=== PATIENT | female | born 1965 | race Caucasian/White ===

== ENCOUNTER 2018-03-04 21:38 | Inpatient (IN) | payer MEDICARE, MEDICAID ==
[~2018-03-04] VITALS: Ht 157.5 cm; Wt 81.8 kg
[~2018-03-04 21:38] MED LIST: DIVA500T4 PO; GABA-531 PO; LEVE1000 PO; LEVO100T PO; LOP600 PO; MELO15TA13 PO; OMEP40CA33 PO; OXYC-130 PO; TEMA15CA5 PO; TIZA4TAB11 PO; VENL75CA PO
[2018-03-04 21:49] VITALS: BP_SYST 117
[2018-03-04] MEDS ORDERED: KETOROLAC TROMETHAMINE 60 MG/2 ML VIAL IM ONE (22:15)
[2018-03-04] MEDS ORDERED: MORPHINE 2 MG/ML INJ. SYRINGE IVP ONE (23:15)
[2018-03-04] MEDS ORDERED: NACL 0.9% 1,000 ML IV ONE (23:15)
[2018-03-04] MEDS ORDERED: MIDAZOLAM HCL 5 MG/5 ML VIAL IVP ONE (23:15)
[2018-03-05 00:02] LABS: BASOPHILS % (AUTO) 0.7 % (0.0-2.0); EOSINOPHILS # (AUTO) 0.1 K/uL (0.0-0.4); HEMOGLOBIN 9.3 g/dL (12.0-16.0); LYMPHOCYTES # (AUTO) 1.7 K/uL (1.0-5.5); LYMPHOCYTES % (AUTO) 26.3 % (20.5-51.5); MEAN CORPUSCULAR HEMOGLOBIN 26 pg (27-31); MEAN CORPUSCULAR HGB CONC 31 % (32-36); MEAN CORPUSCULAR VOLUME 85 fL (79.0-98.0); MONOCYTES # (AUTO) 0.5 K/uL (0.0-1.0); MONOCYTES % (AUTO) 8.1 % (1.7-9.3); NEUTROPHILS # (AUTO) 4.3 K/uL (1.8-7.7); NEUTROPHILS % (AUTO) 62.9 % (40.0-70.0); PLATELET COUNT (AUTO) 167 K/uL (130-430); RED BLOOD CELL COUNT(AUTO) 3.51 MIL/uL (4.2-6.2); WHITE BLOOD COUNT (AUTO) 6.6 K/uL (4.8-10.8)
[2018-03-05] MEDS ORDERED: OXCA150T5 PO (00:10)
[2018-03-05] MEDS ORDERED: TOPI200T PO (00:10)
[2018-03-05 00:12] LABS: CALCIUM 8.3 mg/dL (8.4-11.0); CREATININE 0.76 mg/dL (0.55-1.30); POTASSIUM 3.4 mmol/L (3.5-5.1)
[2018-03-05 00:17] LABS: PROTHROMBIN TIME 9.8 SECS (9.5-12.5)
[2018-03-05 00:18] LABS: ALBUMIN 3.5 g/dL (3.4-4.8); TOTAL BILIRUBIN 0.2 mg/dL (0.0-1.0)
[2018-03-05 01:20] VITALS: BP_SYST 117
[2018-03-05] MEDS: HYDROmorphone 2 MG/ML VIAL IVP PRN ×5 (03:27→22:20)
[2018-03-05] MEDS: ENOXAPARIN SODIUM 40 MG/0.4 ML SYRINGE SUBCUT SCH (08:17)
[2018-03-05 08:23] VITALS: BP_SYST 117
[2018-03-05 11:32] LABS: BILIRUBIN,URINE NEGATIVE (NEGATIVE); BLOOD, URINE NEGATIVE (NEGATIVE); CLARITY/URINE CLEAR (CLEAR); COLOR,URINE YELLOW (YELLOW); GLUCOSE,URINE NEGATIVE (NEGATIVE); KETONES,URINE NEGATIVE (NEGATIVE); LEUKOCYTE ESTERASE ,URINE NEGATIVE (NEGATIVE); NITRITE, URINE NEGATIVE (NEGATIVE); PROTEIN URINE NEGATIVE (NEGATIVE); UROBILINOGEN,URINE 0.2 (0.2-1.0)
[2018-03-05 12:08] VITALS: BP_SYST 125
[2018-03-05] MEDS ORDERED: BISACODYL 5 MG TABLET.DR (DULCOLAX) PO PRN (13:45)
[2018-03-05] MEDS ORDERED: levETIRAcetam 500 MG TABLET PO ONE (13:45)
[2018-03-05] MEDS ORDERED: DIVALPROEX SODIUM 500 MG TAB.SR.24H (DEPAKOTE ER) PO ONE (13:45)
[2018-03-05] MEDS ORDERED: POTASSIUM CHLORIDE 20 MEQ TAB.PRT.SR PO ONE (13:45)
[2018-03-05] MEDS ORDERED: LEVOTHYROXINE SODIUM 0.1 MG TABLET PO ONE (13:45)
[2018-03-05 16:47] VITALS: BP_SYST 117
[2018-03-05 20:00] VITALS: BP_SYST 111
[2018-03-05] MEDS: DOCUSATE SODIUM 100 MG CAPSULE PO SCH (20:15)
[2018-03-05] MEDS: OXcarbazepine 150 MG TABLET(TRILEPTAL) PO SCH (20:16)
[2018-03-05] MEDS: levETIRAcetam 500 MG TABLET PO SCH (20:16)
[2018-03-05] MEDS: DIVALPROEX SODIUM 500 MG TAB.SR.24H (DEPAKOTE ER) PO SCH (20:16)
[2018-03-05] MEDS: TOPIRAMATE 100 MG TABLET(Topamax) PO SCH (20:17)
[2018-03-05 23:40] VITALS: BP_SYST 100
[2018-03-06] MEDS: HYDROmorphone 2 MG/ML VIAL IVP PRN ×5 (04:54→22:55)
[2018-03-06] MEDS: LEVOTHYROXINE SODIUM 0.1 MG TABLET PO SCH (06:00)
[2018-03-06] MEDS: DOCUSATE SODIUM 100 MG CAPSULE PO SCH ×2 (08:59→21:00)
[2018-03-06] MEDS: DIVALPROEX SODIUM 500 MG TAB.SR.24H (DEPAKOTE ER) PO SCH ×2 (09:00→20:24)
[2018-03-06] MEDS: ENOXAPARIN SODIUM 40 MG/0.4 ML SYRINGE SUBCUT SCH (09:00)
[2018-03-06] MEDS: levETIRAcetam 500 MG TABLET PO SCH ×2 (09:00→20:24)
[2018-03-06 09:33] VITALS: BP_SYST 107
[2018-03-06 11:34] VITALS: BP_SYST 106
[2018-03-06] MEDS: ACETAMINOPHEN 325 MG TABLET PO PRN (14:04)
[2018-03-06 16:00] VITALS: BP_SYST 109
[2018-03-06 20:00] VITALS: BP_SYST 105
[2018-03-06] MEDS: TOPIRAMATE 100 MG TABLET(Topamax) PO SCH (20:24)
[2018-03-06] MEDS: OXcarbazepine 150 MG TABLET(TRILEPTAL) PO SCH (20:24)
[2018-03-07] VITALS: BP_SYST 103
[2018-03-07] MEDS: HYDROmorphone 2 MG/ML VIAL IVP PRN ×2 (05:24→11:43)
[2018-03-07] MEDS: LEVOTHYROXINE SODIUM 0.1 MG TABLET PO SCH (06:15)
[2018-03-07 07:00] LABS: PROTHROMBIN TIME 9.7 SECS (9.5-12.5)
[2018-03-07 07:09] LABS: BASOPHILS # (AUTO) 0.1 K/uL (0.0-0.2); EOSINOPHILS # (AUTO) 0.2 K/uL (0.0-0.4); EOSINOPHILS % (AUTO) 2.8 % (0.0-4.0); HEMATOCRIT 24.2 % (36-48); HEMOGLOBIN 7.5 g/dL (12.0-16.0); LYMPHOCYTES # (AUTO) 1.6 K/uL (1.0-5.5); LYMPHOCYTES % (AUTO) 27.8 % (20.5-51.5); MEAN CORPUSCULAR HEMOGLOBIN 26 pg (27-31); MEAN CORPUSCULAR HGB CONC 31 % (32-36); MEAN CORPUSCULAR VOLUME 85 fL (79.0-98.0); MONOCYTES # (AUTO) 0.7 K/uL (0.0-1.0); MONOCYTES % (AUTO) 12.6 % (1.7-9.3); NEUTROPHILS % (AUTO) 55.8 % (40.0-70.0); PLATELET COUNT (AUTO) 141 K/uL (130-430); RED BLOOD CELL COUNT(AUTO) 2.87 MIL/uL (4.2-6.2); RED CELL DISTRIBUTION WIDTH 16.8 % (9.0-15.0); WHITE BLOOD COUNT (AUTO) 5.6 K/uL (4.8-10.8)
[2018-03-07 07:13] LABS: CALCIUM 8.5 mg/dL (8.4-11.0); CREATININE 0.56 mg/dL (0.55-1.30); POTASSIUM 3.7 mmol/L (3.5-5.1)
[2018-03-07 08:40] VITALS: BP_SYST 102
[2018-03-07] MEDS: ENOXAPARIN SODIUM 40 MG/0.4 ML SYRINGE SUBCUT SCH (09:00)
[2018-03-07] MEDS: DIVALPROEX SODIUM 500 MG TAB.SR.24H (DEPAKOTE ER) PO SCH ×2 (09:00→21:00)
[2018-03-07] MEDS: levETIRAcetam 500 MG TABLET PO SCH ×2 (09:00→21:00)
[2018-03-07] MEDS: DOCUSATE SODIUM 100 MG CAPSULE PO SCH ×2 (09:21→21:00)
[2018-03-07] MEDS: ACETAMINOPHEN 325 MG TABLET PO PRN (09:23)
[2018-03-07 12:35] VITALS: BP_SYST 101
[2018-03-07 16:24] VITALS: BP_SYST 110
[2018-03-07] MEDS ORDERED: fentaNYL CITRATE/PF 100 MCG/2 ML AMP IVP PRN ×2 (20:00)
[2018-03-07] MEDS ORDERED: ONDANSETRON HCL 4 MG/2 ML VIAL IVP PRN (20:00)
[2018-03-07] MEDS ORDERED: KETOROLAC TROMETHAMINE 30 MG VIAL IVP PRN (20:00)
[2018-03-07] MEDS ORDERED: POLYMYXIN 500,000/BACIT.10,000 UNITS in NS IRR 1 L IR ONE (20:04)
[2018-03-07 20:59] VITALS: BP_SYST 110
[2018-03-07] MEDS: OXcarbazepine 150 MG TABLET(TRILEPTAL) PO SCH (21:00)
[2018-03-07] MEDS: TOPIRAMATE 100 MG TABLET(Topamax) PO SCH (21:00)
[2018-03-07] MEDS ORDERED: ONDANSETRON 4 MG ODT TAB PO PRN (23:15)
[2018-03-08 01:32] VITALS: BP_SYST 115
[2018-03-08] MEDS: HYDROcodone/ACETAMIN 5-325 MG TAB (NORCO/ VICODIN) PO PRN ×2 (02:06→15:02)
[2018-03-08] MEDS: HYDROmorphone 2 MG/ML VIAL IVP PRN ×4 (04:45→18:23)
[2018-03-08] MEDS ORDERED: CEFAZOLIN 1 GM IVPB PREMIX 50 ML IV ONE (05:56)
[2018-03-08] MEDS: LEVOTHYROXINE SODIUM 0.1 MG TABLET PO SCH (06:14)
[2018-03-08] MEDS: CEFAZOLIN 1 GM IVPB PREMIX 50 ML IV SCH ×2 (06:15→13:11)
[2018-03-08 07:26] LABS: BASOPHILS % (AUTO) 0.4 % (0.0-2.0); EOSINOPHILS # (AUTO) 0.1 K/uL (0.0-0.4); HEMATOCRIT 31.6 % (36-48); HEMOGLOBIN 9.8 g/dL (12.0-16.0); LYMPHOCYTES % (AUTO) 10.6 % (20.5-51.5); MEAN CORPUSCULAR HEMOGLOBIN 27 pg (27-31); MEAN CORPUSCULAR HGB CONC 31 % (32-36); MEAN CORPUSCULAR VOLUME 88 fL (79.0-98.0); MONOCYTES # (AUTO) 1.1 K/uL (0.0-1.0); MONOCYTES % (AUTO) 11.3 % (1.7-9.3); NEUTROPHILS # (AUTO) 7.6 K/uL (1.8-7.7); NEUTROPHILS % (AUTO) 76.7 % (40.0-70.0); PLATELET COUNT (AUTO) 197 K/uL (130-430); RED BLOOD CELL COUNT(AUTO) 3.62 MIL/uL (4.2-6.2); RED CELL DISTRIBUTION WIDTH 16.2 % (9.0-15.0); WHITE BLOOD COUNT (AUTO) 9.8 K/uL (4.8-10.8)
[2018-03-08] MEDS: DIVALPROEX SODIUM 500 MG TAB.SR.24H (DEPAKOTE ER) PO SCH ×2 (08:40→20:02)
[2018-03-08] MEDS: levETIRAcetam 500 MG TABLET PO SCH ×2 (08:40→20:01)
[2018-03-08] MEDS: DOCUSATE SODIUM 100 MG CAPSULE PO SCH ×2 (08:40→20:02)
[2018-03-08] MEDS: ENOXAPARIN SODIUM 40 MG/0.4 ML SYRINGE SUBCUT SCH (08:42)
[2018-03-08 08:50] VITALS: BP_SYST 146
[2018-03-08 12:57] VITALS: BP_SYST 146
[2018-03-08 16:48] VITALS: BP_SYST 131
[2018-03-08] MEDS ORDERED: PROPOFOL 200MG/ 20ML VIAL (DIPRIVAN) IV ONE (19:05)
[2018-03-08] MEDS ORDERED: WATER FOR IRRIGATION,STERILE 1,000 ML IRRIG.SOLN IR ONE (19:05)
[2018-03-08] MEDS ORDERED: fentaNYL CITRATE/PF 100 MCG/2 ML AMP IVP ONE (19:05)
[2018-03-08] MEDS ORDERED: CEFAZOLIN 2 GM IVPB PREMIX 50 ML IV ONE (19:05)
[2018-03-08] MEDS ORDERED: ROPIVACAINE 0.2% (NAROPIN) PF SOLUTION 100 ML BOTTLE EP ONE (19:05)
[2018-03-08] MEDS ORDERED: MIDAZOLAM HCL 5 MG/5 ML VIAL IVP ONE (19:05)
[2018-03-08] MEDS ORDERED: LR 1,000 ML IV.SOLN IV ONE (19:05)
[2018-03-08] MEDS ORDERED: SEVOFLURANE 15 MIN GAS INH ONE (19:05)
[2018-03-08 20:00] VITALS: BP_SYST 138
[2018-03-08] MEDS: TOPIRAMATE 100 MG TABLET(Topamax) PO SCH (20:01)
[2018-03-08] MEDS: OXcarbazepine 150 MG TABLET(TRILEPTAL) PO SCH (20:02)
[2018-03-08 23:24] VITALS: BP_SYST 136
[2018-03-09] MEDS: HYDROmorphone 2 MG/ML VIAL IVP PRN ×4 (00:20→18:53)
[2018-03-09] MEDS: LEVOTHYROXINE SODIUM 0.1 MG TABLET PO SCH (06:34)
[2018-03-09] MEDS: ENOXAPARIN SODIUM 40 MG/0.4 ML SYRINGE SUBCUT SCH (08:55)
[2018-03-09] MEDS: DOCUSATE SODIUM 100 MG CAPSULE PO SCH ×2 (08:55→21:00)
[2018-03-09] MEDS: levETIRAcetam 500 MG TABLET PO SCH ×2 (08:57→21:34)
[2018-03-09] MEDS: DIVALPROEX SODIUM 500 MG TAB.SR.24H (DEPAKOTE ER) PO SCH ×2 (08:57→21:34)
[2018-03-09 09:04] VITALS: BP_SYST 129
[2018-03-09 12:36] VITALS: BP_SYST 117
[2018-03-09] MEDS: HYDROcodone/ACETAMIN 5-325 MG TAB (NORCO/ VICODIN) PO PRN (13:26)
[2018-03-09 16:48] VITALS: BP_SYST 127
[2018-03-09] MEDS: ACETAMINOPHEN 325 MG TABLET PO PRN (18:58)
[2018-03-09 20:45] VITALS: BP_SYST 116
[2018-03-09] MEDS: OXcarbazepine 150 MG TABLET(TRILEPTAL) PO SCH (21:34)
[2018-03-09] MEDS: TOPIRAMATE 100 MG TABLET(Topamax) PO SCH (21:34)
== END 2018-03-09 22:14 | DRG 493 ==
LOC: SED 21:38 → SMU 03-05 00:40
PROVIDERS: ADMIT Family Medicine; ATTEND Family Medicine
PROC: 2W3FX1Z Immobilization of Left Hand using Splint (ICD-10-PCS; 2018-03-05)
PROC: 30233N1 Transfusion of Nonautologous Red Blood Cells into Peripheral Vein, Percutaneous Approach (ICD-10-PCS; principal; 2018-03-07 17:30)
PROC: 0QSG04Z Reposition Right Tibia with Internal Fixation Device, Open Approach (ICD-10-PCS; 2018-03-08)
PROC: 0PSH04Z Reposition Right Radius with Internal Fixation Device, Open Approach (ICD-10-PCS; 2018-03-08)
PROC: 0PSG04Z Reposition Left Humeral Shaft with Internal Fixation Device, Open Approach (ICD-10-PCS; 2018-03-08)
DX: S52.122A Displaced fracture of head of left radius, initial encounter for closed fracture (principal); S42.452A Displaced fracture of lateral condyle of left humerus, initial encounter for closed fracture; S82.141A Displaced bicondylar fracture of right tibia, initial encounter for closed fracture; S83.249A Other tear of medial meniscus, current injury, unspecified knee, initial encounter; D64.9 Anemia, unspecified; E03.9 Hypothyroidism, unspecified; E86.0 Dehydration; E87.6 Hypokalemia; G40.909 Epilepsy, unspecified, not intractable, without status epilepticus; F32.9 Major depressive disorder, single episode, unspecified; W11.XXXA Fall on and from ladder, initial encounter; Y93.89 Activity, other specified; Y92.098 Other place in other non-institutional residence as the place of occurrence of the external cause; Y99.8 Other external cause status; Z91.041 Radiographic dye allergy status; Z91.09 Other allergy status, other than to drugs and biological substances; Z79.899 Other long term (current) drug therapy
CPT/HCPCS: 36415; 71045; 73200-TC; 73700-TC; 76000; 80048; 80053; 81003; 84702-TC; 85025; 85610-TC; 85730-TC; 86886; 86900; 86901; 86920; 87081; 90656; 93005; 94010; 96372; 96374; 97110-GP; 97530-GP; 99285; J0690; J1170; J1650; J1885; J2250; J2270; J2704; J2795; J3010; J7050; J7120; P9021

== ENCOUNTER 2019-04-24 16:21 | Inpatient (IN) | payer OTHER, MEDICAID ==
[~2019-04-24] VITALS: Ht 157.5 cm; Wt 76.2 kg
[~2019-04-24 16:21] MED LIST changes: -GABA-531 PO; -LOP600 PO; -MELO15TA13 PO; -OMEP40CA33 PO; +OXCA150T5 PO; -OXYC-130 PO; -TEMA15CA5 PO; -TIZA4TAB11 PO; +TOPI200T PO; -VENL75CA PO
[2019-04-24 17:56] VITALS: BP_SYST 140
[2019-04-24] MEDS ORDERED: MORPHINE 4 MG/ML INJ. SYRINGE IVP ONE (18:15)
[2019-04-24] MEDS ORDERED: VANCOMYCIN HCL 1,000 MG in NS 250 ML IV ONE (18:15)
[2019-04-24] MEDS ORDERED: DIPHENHYDRAMINE INJ 50 MG/ML VIAL IVP ONE (18:15)
[2019-04-24 18:49] LABS: BASOPHILS % (AUTO) 0.3 % (0.0-2.0); EOSINOPHILS # (AUTO) 0.1 K/uL (0.0-0.4); EOSINOPHILS % (AUTO) 0.4 % (0.0-4.0); HEMATOCRIT 34.4 % (36-48); HEMOGLOBIN 11.1 g/dL (12.0-16.0); LYMPHOCYTES # (AUTO) 2.3 K/uL (1.0-5.5); LYMPHOCYTES % (AUTO) 16.1 % (20.5-51.5); MEAN CORPUSCULAR HEMOGLOBIN 29 pg (27-31); MEAN CORPUSCULAR HGB CONC 32 % (32-36); MEAN CORPUSCULAR VOLUME 90 fL (79.0-98.0); MONOCYTES # (AUTO) 1.4 K/uL (0.0-1.0); MONOCYTES % (AUTO) 9.8 % (1.7-9.3); NEUTROPHILS # (AUTO) 10.3 K/uL (1.8-7.7); NEUTROPHILS % (AUTO) 73.4 % (40.0-70.0); PLATELET COUNT (AUTO) 308 K/uL (130-430); RED BLOOD CELL COUNT(AUTO) 3.83 MIL/uL (4.2-6.2); RED CELL DISTRIBUTION WIDTH 14.8 % (9.0-15.0)
[2019-04-24 18:50] LABS: CALCIUM 9.2 mg/dL (8.4-11.0); CREATININE 0.79 mg/dL (0.55-1.30); POTASSIUM 3.2 mmol/L (3.5-5.1)
[2019-04-24] MEDS ORDERED: VANCOMYCIN HCL 1000 MG/VIAL IV ONE (19:26)
[2019-04-24] MEDS ORDERED: POTASSIUM CHLORIDE 20 MEQ TAB.PRT.SR PO ONE (19:30)
[2019-04-24] MEDS ORDERED: fentaNYL CITRATE/PF 100 MCG/2 ML AMP IVP ONE (19:45)
[2019-04-24] MEDS ORDERED: ETOD200C4 PO (20:18)
[2019-04-24] MEDS ORDERED: PERC10 PO (20:18)
[2019-04-24] MEDS ORDERED: METH750T3 PO (20:18)
[2019-04-24] MEDS ORDERED: VENL75CA PO (20:20)
[2019-04-24 22:10] VITALS: BP_SYST 129
[2019-04-24] MEDS ORDERED: INSULIN REGULAR, HUMAN 100 UNITS/ML, 10 ML VIAL (humuLIN R) SUBCUT PRN (23:00)
[2019-04-25] MEDS ORDERED: AMPICILLIN SODIUM/SULBACTAM NA 3 GM VIAL ONE ×2 (00:51→05:42)
[2019-04-25] MEDS: AMPICILLIN SODIUM/SULBACTAM NA 3 GM in NS 100 ML IV SCH ×4 (01:05→18:12)
[2019-04-25] MEDS: OXcarbazepine 150 MG TABLET(TRILEPTAL) PO SCH ×2 (01:27→23:51)
[2019-04-25] MEDS: TOPIRAMATE 100 MG TABLET(Topamax) PO SCH ×2 (01:27→23:51)
[2019-04-25] MEDS: levETIRAcetam 500 MG TABLET PO SCH ×2 (01:27→12:24)
[2019-04-25] MEDS: HYDROmorphone 1 MG INJ. 1 MG/ML AMPUL IVP PRN ×3 (01:36→16:52)
[2019-04-25] MEDS: LEVOTHYROXINE SODIUM 0.1 MG TABLET PO SCH (06:33)
[2019-04-25 07:36] LABS: BASOPHILS # (AUTO) 0.1 K/uL (0.0-0.2); BASOPHILS % (AUTO) 0.4 % (0.0-2.0); EOSINOPHILS % (AUTO) 0.3 % (0.0-4.0); HEMATOCRIT 30.7 % (36-48); HEMOGLOBIN 10.2 g/dL (12.0-16.0); LYMPHOCYTES # (AUTO) 2.8 K/uL (1.0-5.5); LYMPHOCYTES % (AUTO) 19.2 % (20.5-51.5); MEAN CORPUSCULAR HEMOGLOBIN 30 pg (27-31); MEAN CORPUSCULAR HGB CONC 33 % (32-36); MEAN CORPUSCULAR VOLUME 89 fL (79.0-98.0); MONOCYTES # (AUTO) 1.8 K/uL (0.0-1.0); MONOCYTES % (AUTO) 12.5 % (1.7-9.3); NEUTROPHILS # (AUTO) 9.7 K/uL (1.8-7.7); NEUTROPHILS % (AUTO) 67.6 % (40.0-70.0); PLATELET COUNT (AUTO) 248 K/uL (130-430); RED BLOOD CELL COUNT(AUTO) 3.44 MIL/uL (4.2-6.2); RED CELL DISTRIBUTION WIDTH 15.1 % (9.0-15.0); WHITE BLOOD COUNT (AUTO) 14.3 K/uL (4.8-10.8)
[2019-04-25 07:44] LABS: CALCIUM 8.5 mg/dL (8.4-11.0); CREATININE 0.63 mg/dL (0.55-1.30); POTASSIUM 3.1 mmol/L (3.5-5.1)
[2019-04-25 08:00] VITALS: BP_SYST 104
[2019-04-25] MEDS: ETODOLAC 200 MG PO SCH ×2 (09:00→21:00)
[2019-04-25] MEDS: METHOCARBAMOL 500 MG TABLET PO SCH ×2 (09:42→23:51)
[2019-04-25] MEDS: Effexor 37.5 MG TAB PO SCH ×2 (09:43→23:51)
[2019-04-25] MEDS: VANCOMYCIN HCL 750 MG in NS 250 ML IV SCH (12:06)
[2019-04-25 12:29] VITALS: BP_SYST 136
[2019-04-25 12:31] VITALS: BP_SYST 113
[2019-04-25] MEDS ORDERED: POTASSIUM CHLORIDE 20 MEQ TAB.PRT.SR PO ONE (13:45)
[2019-04-25] MEDS ORDERED: DIVALPROEX SODIUM 500 MG TABLET( DEPAKOTE) PO ONE (14:45)
[2019-04-25 16:00] VITALS: BP_SYST 123
[2019-04-25] MEDS: MICAFUNGIN SODIUM 100 MG in NS 100 ML IV SCH (18:13)
[2019-04-25 22:30] VITALS: BP_SYST 115
[2019-04-25] MEDS: DIVALPROEX SODIUM 500 MG TABLET( DEPAKOTE) PO SCH (23:50)
[2019-04-25] MEDS: ENOXAPARIN SODIUM 40 MG/0.4 ML SYRINGE SUBCUT SCH (23:56)
[2019-04-26] MEDS: VANCOMYCIN HCL 750 MG in NS 250 ML IV SCH ×2 (00:01→11:26)
[2019-04-26] MEDS: HYDROmorphone 1 MG INJ. 1 MG/ML AMPUL IVP PRN ×2 (00:10→08:43)
[2019-04-26] MEDS: LEVOTHYROXINE SODIUM 0.1 MG TABLET PO SCH (06:06)
[2019-04-26] MEDS: AMPICILLIN SODIUM/SULBACTAM NA 3 GM in NS 100 ML IV SCH ×5 (06:06→17:09)
[2019-04-26 07:17] LABS: BASOPHILS % (AUTO) 0.3 % (0.0-2.0); EOSINOPHILS # (AUTO) 0.2 K/uL (0.0-0.4); EOSINOPHILS % (AUTO) 1.5 % (0.0-4.0); HEMOGLOBIN 9.7 g/dL (12.0-16.0); LYMPHOCYTES # (AUTO) 1.9 K/uL (1.0-5.5); LYMPHOCYTES % (AUTO) 17.6 % (20.5-51.5); MEAN CORPUSCULAR HEMOGLOBIN 29 pg (27-31); MEAN CORPUSCULAR HGB CONC 32 % (32-36); MEAN CORPUSCULAR VOLUME 89 fL (79.0-98.0); MONOCYTES # (AUTO) 1.1 K/uL (0.0-1.0); MONOCYTES % (AUTO) 9.9 % (1.7-9.3); NEUTROPHILS # (AUTO) 7.8 K/uL (1.8-7.7); NEUTROPHILS % (AUTO) 70.7 % (40.0-70.0); PLATELET COUNT (AUTO) 228 K/uL (130-430); RED BLOOD CELL COUNT(AUTO) 3.37 MIL/uL (4.2-6.2); RED CELL DISTRIBUTION WIDTH 14.9 % (9.0-15.0); WHITE BLOOD COUNT (AUTO) 11.1 K/uL (4.8-10.8)
[2019-04-26 07:30] LABS: CALCIUM 8.4 mg/dL (8.4-11.0); CREATININE 0.48 mg/dL (0.55-1.30); POTASSIUM 3.6 mmol/L (3.5-5.1)
[2019-04-26] MEDS: Effexor 37.5 MG TAB PO SCH ×2 (08:35→21:36)
[2019-04-26] MEDS: METHOCARBAMOL 500 MG TABLET PO SCH ×2 (08:35→21:35)
[2019-04-26] MEDS: levETIRAcetam 500 MG TABLET PO SCH (08:36)
[2019-04-26] MEDS: DIVALPROEX SODIUM 500 MG TABLET( DEPAKOTE) PO SCH ×2 (08:36→21:37)
[2019-04-26 08:43] VITALS: BP_SYST 111
[2019-04-26] MEDS: ETODOLAC 200 MG PO SCH ×2 (09:00→21:00)
[2019-04-26] MEDS: OXYCODONE/ACETAMINOPHEN *10*mg/325 mg TABLET PO PRN (11:34)
[2019-04-26 11:39] VITALS: BP_SYST 111
[2019-04-26] MEDS: MICAFUNGIN SODIUM 100 MG in NS 100 ML IV SCH (17:09)
[2019-04-26 17:14] VITALS: BP_SYST 119
[2019-04-26 20:00] VITALS: BP_SYST 118
[2019-04-26] MEDS: ENOXAPARIN SODIUM 40 MG/0.4 ML SYRINGE SUBCUT SCH (21:31)
[2019-04-26] MEDS: OXcarbazepine 150 MG TABLET(TRILEPTAL) PO SCH (21:35)
[2019-04-26] MEDS: TOPIRAMATE 100 MG TABLET(Topamax) PO SCH (21:36)
[2019-04-26] MEDS: DOXYCYCLINE HYCLATE 100 MG CAPSULE PO SCH (21:37)
[2019-04-27] MEDS: AMPICILLIN SODIUM/SULBACTAM NA 3 GM in NS 100 ML IV SCH (00:38)
[2019-04-27] MEDS: HYDROmorphone 1 MG INJ. 1 MG/ML AMPUL IVP PRN (00:39)
[2019-04-27] MEDS: ETODOLAC 200 MG PO SCH ×2 (09:00→21:00)
[2019-04-28] MEDS: LEVOTHYROXINE SODIUM 0.1 MG TABLET PO SCH (07:00)
[2019-04-28] MEDS: levETIRAcetam 500 MG TABLET PO SCH (09:00)
[2019-04-28] MEDS: ETODOLAC 200 MG PO SCH ×2 (09:00→21:00)
[2019-04-28] MEDS: MICAFUNGIN SODIUM 100 MG in NS 100 ML IV SCH (18:00)
[2019-04-28] MEDS: AMPICILLIN SODIUM/SULBACTAM NA 3 GM in NS 100 ML IV SCH (18:00)
[2019-04-28] MEDS: DOXYCYCLINE HYCLATE 100 MG CAPSULE PO SCH (21:00)
[2019-04-28] MEDS: TOPIRAMATE 100 MG TABLET(Topamax) PO SCH (21:00)
[2019-04-28] MEDS: Effexor 37.5 MG TAB PO SCH (21:00)
[2019-04-28] MEDS: DIVALPROEX SODIUM 500 MG TABLET( DEPAKOTE) PO SCH (21:00)
[2019-04-28] MEDS: ENOXAPARIN SODIUM 40 MG/0.4 ML SYRINGE SUBCUT SCH (21:00)
[2019-04-28] MEDS: OXcarbazepine 150 MG TABLET(TRILEPTAL) PO SCH (21:00)
[2019-04-28] MEDS: METHOCARBAMOL 500 MG TABLET PO SCH (21:00)
[2019-04-28] MEDS: HYDROmorphone 1 MG INJ. 1 MG/ML AMPUL IVP PRN (22:00)
[2019-04-29 00:21] VITALS: BP_SYST 104
[2019-04-29] MEDS: AMPICILLIN SODIUM/SULBACTAM NA 3 GM in NS 100 ML IV SCH ×4 (00:43→18:02)
[2019-04-29] MEDS: LEVOTHYROXINE SODIUM 0.1 MG TABLET PO SCH (06:25)
[2019-04-29] MEDS: HYDROmorphone 1 MG INJ. 1 MG/ML AMPUL IVP PRN ×3 (08:01→22:33)
[2019-04-29] MEDS: DOXYCYCLINE HYCLATE 100 MG CAPSULE PO SCH ×2 (08:55→22:11)
[2019-04-29] MEDS: levETIRAcetam 500 MG TABLET PO SCH (08:55)
[2019-04-29] MEDS: DIVALPROEX SODIUM 500 MG TABLET( DEPAKOTE) PO SCH ×2 (08:55→22:11)
[2019-04-29] MEDS: METHOCARBAMOL 500 MG TABLET PO SCH ×2 (08:57→22:12)
[2019-04-29] MEDS: Effexor 37.5 MG TAB PO SCH ×2 (09:00→22:11)
[2019-04-29] MEDS: ETODOLAC 200 MG PO SCH ×2 (09:00→21:00)
[2019-04-29] MEDS: VANCOMYCIN HCL 1 GM/NS PREMIX 250 ML IV SCH ×2 (14:43→22:15)
[2019-04-29 15:51] VITALS: BP_SYST 106
[2019-04-29 19:54] VITALS: BP_SYST 103
[2019-04-29] MEDS: PEG 400/HYPROMELLOSE/GLYCERIN 15 ML DROPS BOTH EYES SCH (21:00)
[2019-04-29] MEDS: TOPIRAMATE 100 MG TABLET(Topamax) PO SCH (22:11)
[2019-04-29] MEDS: OXcarbazepine 150 MG TABLET(TRILEPTAL) PO SCH (22:11)
[2019-04-29] MEDS: ENOXAPARIN SODIUM 40 MG/0.4 ML SYRINGE SUBCUT SCH (22:19)
[2019-04-30] MEDS: AMPICILLIN SODIUM/SULBACTAM NA 3 GM in NS 100 ML IV SCH ×4 (00:32→16:36)
[2019-04-30 00:35] VITALS: BP_SYST 99
[2019-04-30] MEDS: LEVOTHYROXINE SODIUM 0.1 MG TABLET PO SCH (06:14)
[2019-04-30 08:00] VITALS: BP_SYST 100
[2019-04-30] MEDS: DOXYCYCLINE HYCLATE 100 MG CAPSULE PO SCH ×2 (08:29→21:39)
[2019-04-30] MEDS: levETIRAcetam 500 MG TABLET PO SCH (08:29)
[2019-04-30] MEDS: DIVALPROEX SODIUM 500 MG TABLET( DEPAKOTE) PO SCH ×2 (08:29→21:38)
[2019-04-30] MEDS: Effexor 37.5 MG TAB PO SCH ×2 (08:29→21:38)
[2019-04-30] MEDS: OXYCODONE/ACETAMINOPHEN *10*mg/325 mg TABLET PO PRN ×2 (08:30→15:54)
[2019-04-30] MEDS: PEG 400/HYPROMELLOSE/GLYCERIN 15 ML DROPS BOTH EYES SCH ×3 (08:36→21:00)
[2019-04-30] MEDS: ETODOLAC 200 MG PO SCH ×2 (08:36→21:00)
[2019-04-30 09:06] LABS: BASOPHILS # (AUTO) 0.1 K/uL (0.0-0.2); EOSINOPHILS # (AUTO) 0.1 K/uL (0.0-0.4); EOSINOPHILS % (AUTO) 1.7 % (0.0-4.0); HEMATOCRIT 32.5 % (36-48); HEMOGLOBIN 10.6 g/dL (12.0-16.0); LYMPHOCYTES # (AUTO) 2.8 K/uL (1.0-5.5); LYMPHOCYTES % (AUTO) 43.8 % (20.5-51.5); MEAN CORPUSCULAR HEMOGLOBIN 29 pg (27-31); MEAN CORPUSCULAR HGB CONC 33 % (32-36); MEAN CORPUSCULAR VOLUME 90 fL (79.0-98.0); MONOCYTES # (AUTO) 0.6 K/uL (0.0-1.0); MONOCYTES % (AUTO) 9.3 % (1.7-9.3); NEUTROPHILS # (AUTO) 2.8 K/uL (1.8-7.7); NEUTROPHILS % (AUTO) 44.2 % (40.0-70.0); PLATELET COUNT (AUTO) 404 K/uL (130-430); RED CELL DISTRIBUTION WIDTH 15.5 % (9.0-15.0); WHITE BLOOD COUNT (AUTO) 6.4 K/uL (4.8-10.8)
[2019-04-30 09:29] LABS: ALBUMIN 2.9 g/dL (3.4-4.8); CALCIUM 8.7 mg/dL (8.4-11.0); CREATININE 0.52 mg/dL (0.55-1.30); POTASSIUM 3.6 mmol/L (3.5-5.1); TOTAL BILIRUBIN 0.3 mg/dL (0.0-1.0)
[2019-04-30 12:18] VITALS: BP_SYST 103
[2019-04-30] MEDS: METHOCARBAMOL 500 MG TABLET PO SCH ×2 (12:27→22:04)
[2019-04-30] MEDS: VANCOMYCIN HCL 1 GM/NS PREMIX 250 ML IV SCH ×2 (12:27→23:25)
[2019-04-30] MEDS: HYDROmorphone 1 MG INJ. 1 MG/ML AMPUL IVP PRN ×3 (12:37→22:01)
[2019-04-30 16:00] VITALS: BP_SYST 101
[2019-04-30] MEDS: OXcarbazepine 150 MG TABLET(TRILEPTAL) PO SCH (21:39)
[2019-04-30] MEDS: TOPIRAMATE 100 MG TABLET(Topamax) PO SCH (21:39)
[2019-04-30] MEDS: ENOXAPARIN SODIUM 40 MG/0.4 ML SYRINGE SUBCUT SCH (21:41)
[2019-04-30 21:50] VITALS: BP_SYST 102
[2019-05-01] VITALS (7 sets, daily range): BP systolic 108–127
[2019-05-01] MEDS: AMPICILLIN SODIUM/SULBACTAM NA 3 GM in NS 100 ML IV SCH ×3 (01:25→13:47)
[2019-05-01] MEDS: LEVOTHYROXINE SODIUM 0.1 MG TABLET PO SCH (06:31)
[2019-05-01] MEDS: HYDROmorphone 1 MG INJ. 1 MG/ML AMPUL IVP PRN ×2 (06:56→12:03)
[2019-05-01 07:32] LABS: CALCIUM 8.2 mg/dL (8.4-11.0); CREATININE 0.53 mg/dL (0.55-1.30); POTASSIUM 3.5 mmol/L (3.5-5.1)
[2019-05-01] MEDS: DOXYCYCLINE HYCLATE 100 MG CAPSULE PO SCH (08:49)
[2019-05-01] MEDS: levETIRAcetam 500 MG TABLET PO SCH (08:49)
[2019-05-01] MEDS: DIVALPROEX SODIUM 500 MG TABLET( DEPAKOTE) PO SCH (08:49)
[2019-05-01] MEDS: PEG 400/HYPROMELLOSE/GLYCERIN 15 ML DROPS BOTH EYES SCH ×2 (08:50→14:36)
[2019-05-01] MEDS: Effexor 37.5 MG TAB PO SCH (08:50)
[2019-05-01] MEDS: ETODOLAC 200 MG PO SCH (08:50)
[2019-05-01] MEDS: METHOCARBAMOL 500 MG TABLET PO SCH (08:50)
[2019-05-01] MEDS: VANCOMYCIN HCL 1 GM/NS PREMIX 250 ML IV SCH (11:15)
[2019-05-01] MEDS ORDERED: VANCOMYCIN HCL 1,000 MG in NS 250 ML IV SCH (20:00)
== END 2019-05-01 17:30 | DRG 155 ==
LOC: SED 16:21 → SMU 20:00
PROVIDERS: ADMIT Family Medicine; ATTEND Family Medicine
DX: S02.2XXA Fracture of nasal bones, initial encounter for closed fracture (principal); L03.211 Cellulitis of face; A42.89 Other forms of actinomycosis; J32.0 Chronic maxillary sinusitis; D64.9 Anemia, unspecified; E11.9 Type 2 diabetes mellitus without complications; F32.9 Major depressive disorder, single episode, unspecified; G40.909 Epilepsy, unspecified, not intractable, without status epilepticus; I10 Essential (primary) hypertension; E03.9 Hypothyroidism, unspecified; G89.29 Other chronic pain; E87.6 Hypokalemia; W22.8XXA Striking against or struck by other objects, initial encounter; Z87.81 Personal history of (healed) traumatic fracture; Z91.041 Radiographic dye allergy status; Z91.048 Other nonmedicinal substance allergy status; Y93.89 Activity, other specified; Y92.89 Other specified places as the place of occurrence of the external cause; Y99.8 Other external cause status
CPT/HCPCS: 36415; 70486-TC; 80048; 80053; 80202-TC; 82962; 83605; 85025; 87040-TC; 87081; 96365; 96366; 96375; 99285; J0295; J1170; J1200; J1650; J1815; J2248; J2270; J3010; J3370; J7050

== ENCOUNTER 2019-05-15 08:42 | Outpatient (CLI) | payer OTHER, MEDICAID ==
[~2019-05-15 08:42] MED LIST changes: +ETOD200C4 PO; +METH750T3 PO; +PERC10 PO; +VENL75CA PO
[2019-05-15] MEDS ORDERED: IOHEXOL 0 ML IV ONE (09:20)
== END 2019-05-15 20:16 | disposition home or self-care (01) ==
LOC: SCT 08:42
PROVIDERS: ATTEND Family Medicine
DX: J32.0 Chronic maxillary sinusitis (principal); L03.211 Cellulitis of face
CPT/HCPCS: 70486-TC; Q9967